=== PATIENT | female | born 1990 | race African-American/Black ===

== ENCOUNTER → 2019-12-18 | Outpatient (CLI) | payer OTHER ==
[2014-11-11 11:43] VITALS: BP 136/91
== END | disposition home or self-care (01) ==
LOC: LAB 04:07
PROVIDERS: ATTEND Emergency Medicine
DX: Z02.83 Encounter for blood-alcohol and blood-drug test (principal)
CPT/HCPCS: 36415

== ENCOUNTER 2020-09-05 16:21 | Emergency (ER) | payer OTHER ==
[~2020-09-05] VITALS: Ht 157.5 cm; Wt 98.2 kg
[2020-09-05] MEDS ORDERED: AZITHROMYCIN 250 MG TABLET. PO ONE (17:00)
[2020-09-05] MEDS ORDERED: cefTRIAXone IM 250 MG VIAL IM ONE (17:00)
[2020-09-05] MEDS ORDERED: ONDANSETRON ODT 4 MG TAB.RAPDIS. PO ONE (17:00)
[2020-09-05 17:16] LABS: BILIRUBIN,URINE NEGATIVE (NEG); CLARITY,URINE CLEAR; COLOR,URINE YELLOW; NITRITE,URINE NEGATIVE (NEG); PH,URINE 5.5 (<5.0-8.0); PROTEIN,URINE NEGATIVE (NEG-TRACE)
[2020-09-05 17:22] LABS: BACTERIA,URINE MANY /HPF (0-FEW)
--- NOTE | 2020-09-05 17:22 | PHYS DOC ---
Past Medical History Past Medical History: No Pertinent History Past Surgical History: Other Additional Past Surgical Histo: ovarian cyst removal Smoking Status: Current Every Day Smoker Alcohol Use: Occasionally Drug Use: None General Adult EDM: Chief Complaint: ABDOMINAL PAIN HPI: HPI: Patient is a 30 year old female who presents with states for the last week she has had vaginal itching and white discharge and now having low mid abdominal pain that comes and goes with some nausea. She states she found out that she had had intercourse with somebody that came back positive for chlamydia. Patient currently denies any pain, vomiting, diarrhea, fever, back pain, urinary symptoms, headache, dizziness, chest pain, shortness of air, cough. Review of Systems: Review of Systems: Constitutional: Denies fever or chills. [] Eyes: Denies change in visual acuity. [] HENT: Denies nasal congestion or sore throat. [] Respiratory: Denies cough or shortness of breath. [] Cardiovascular: Denies chest pain or edema. [] GI: +abdominal pain, +nausea, denies vomiting, bloody stools or diarrhea. [] : Denies dysuria. + Vaginal discharge [] Musculoskeletal: Denies back pain or joint pain. [] Integument: Denies rash. [] Neurologic: Denies headache, focal weakness or sensory changes. [] Endocrine: Denies polyuria or polydipsia. [] Lymphatic: Denies swollen glands. [] Psychiatric: Denies depression or anxiety. [] Heart Score: Risk Factors: Risk Factors: DM, Current or recent (<one month) smoker, HTN, HLP, family history of CAD, obesity. Risk Scores: Score 0 - 3: 2.5% MACE over next 6 weeks - Discharge Home Score 4 - 6: 20.3% MACE over next 6 weeks - Admit for Clinical Observation Score 7 - 10: 72.7% MACE over next 6 weeks - Early Invasive Strategies Current Medications: Current Medications Medications (Trade) Dose Ordered Sig/Yung Start Time Stop Time Status Last Admin Dose Admin Azithromycin (Zithromax) 1,000 mg 1X ONCE 09/05/20 17:00 09/05/20 17:01 DC Ceftriaxone Sodium (Rocephin Im) 500 mg 1X ONCE 09/05/20 17:00 09/05/20 17:01 DC Ondansetron HCl (Zofran Odt) 4 mg 1X ONCE 09/05/20 17:00 09/05/20 17:01 DC Allergies: Allergies: Allergies Coded Allergies Type Severity Reaction Last Updated Verified povidone-iodine Adverse Reaction Intermediate 09/05/20 Yes soap Adverse Reaction Intermediate 09/05/20 Yes Physical Exam: PE: Constitutional: Well developed, well nourished, no acute distress, non-toxic appearance. [] HENT: Normocephalic, atraumatic, bilateral external ears normal, oropharynx moist, no oral exudates, nose normal. [] Eyes: PERRLA, EOMI, conjunctiva normal, no discharge. [] Neck: Normal range of motion, no tenderness, supple, no stridor. [] Cardiovascular:Heart rate regular rhythm, no murmur [] Lungs & Thorax: Bilateral breath sounds clear to auscultation [] Abdomen: Bowel sounds normal, soft, no tenderness, no masses, no pulsatile masses. [] Skin: Warm, dry, no erythema, no rash. [] Back: No tenderness, no CVA tenderness. [] Extremities: No tenderness, no cyanosis, no clubbing, ROM intact, no edema. [] Neurologic: Alert and oriented X 3, normal motor function, normal sensory function, no focal deficits noted. [] Psychologic: Affect normal, judgement normal, mood normal. Normal physical exam [] Current Patient Data: Labs: Laboratory Tests Test 09/05/20 16:38 POC Urine HCG, Qualitative Hcg negative (Negative) EKG: EKG: [] Radiology/Procedures: Radiology/Procedures: [] Course & Med Decision Making: Course & Med Decision Making Pertinent Labs and Imaging studies reviewed. (See chart for details) See HPI. Speaks in full clear sentences. Alert and oriented x4. Ambulatory with a steady gait. Abdomen is soft and nontender. Afebrile. Patient is given Rocephin, Zofran and azithromycin in the ED. Patient is educated that the test will come back for chlamydia and gonorrhea in 48 hours and she will be called only if something is positive. Pelvic Exam: X Ray Physician present Abdomen: Nontender External Genitalia: Normal Skin Speculum: Normal vaginal mucosa, white cervical discharge Bimanual: No adnexal masses or tenderness, No CMT Wet prep shows BV and yeast infection. She also has a slight UTI. You were given metronidazole and Keflex. [] Cierra Disclaimer: Cierra Disclaimer: This electronic medical record was generated, in whole or in part, using a voice recognition dictation system. Departure Departure Impression: Primary Impression: Sexually transmitted disease Additional Impressions: Pelvic pain Yeast infection Bacterial vaginosis Disposition: 01 DC HOME SELF CARE/HOMELESS Condition: STABLE Referrals: NO PCP (PCP) LINDA PAIGE Jr, MD Patient Instructions: Bacterial Vaginosis, Candidal Vulvovaginitis, [id number], Sexually Transmitted Disease Additional Instructions: You have been treated for chlamydia and gonorrhea today. Your results will be back in 48 hours and you will be called only if they are positive. Scripts Cephalexin (CEPHALEXIN) 500 Mg Capsule 1 CAP PO BID, #14 CAP Prov: ANTIONETTE MCNAMARA APRN 09/05/20 Ondansetron (ONDANSETRON ODT) 4 Mg Tab.rapdis 1 TAB PO PRN Q6-8HRS, #16 TAB Prov: ANTIONETTE MCNAMARA APRN 09/05/20 Metronidazole (METRONIDAZOLE) 500 Mg Tablet 1 TAB PO BID for 7 Days, #14 TAB 0 Refills Prov: ANTIONETTE MCNAMARA APRN 09/05/20 ANTIONETTE MCNAMARA APRN Sep 05, 2020 17:22
[2020-09-05 17:23] LABS: RBC,URINE OCC /HPF (0-2)
[2020-09-05] MEDS ORDERED: CEPH500C PO (17:51)
[2020-09-05] MEDS ORDERED: METR-34 PO (17:51)
[2020-09-05] MEDS ORDERED: ONDA4TAB12 PO (17:51)
[2020-09-05 18:07] VITALS: BP 125/79
[2020-09-07 19:10] LABS: GC PROBE Negative (Negative)
== END 2020-09-05 18:07 | disposition home or self-care (01) ==
LOC: ER 16:21
DX: A64 Unspecified sexually transmitted disease (principal); R10.2 Pelvic and perineal pain; B37.3 Candidiasis of vulva and vagina; N76.0 Acute vaginitis; B96.89 Other specified bacterial agents as the cause of diseases classified elsewhere; F17.200 Nicotine dependence, unspecified, uncomplicated; Z88.8 Allergy status to other drugs, medicaments and biological substances
CPT/HCPCS: 81001; 81025; 87086; 87491; 87591; 96372; 99284; J0696; Q0111